=== PATIENT | male | born 1960 | race Caucasian/White ===

== ENCOUNTER 2019-10-18 11:13 | Day surgery (SDC) | payer BC ==
[~2019-10-18] VITALS: Ht 193 cm; Wt 109.1 kg
[2019-10-18 12:43] VITALS: BP 124/82; Ht 193 cm; Wt 109.1 kg
[2019-10-18] MEDS ORDERED: AMOXICILLIN500 M1 (12:49)
--- NOTE | 2019-10-19 07:38 | OP ---
PATIENT NAME: BREANA WARD MEDICAL RECORD: [id number] :56 LOCATION:[facility] ADMISSION DATE: SURGEON: ZANE BHARDWAJ DO DATE OF OPERATION: 10/18/2019 PROCEDURE: Colonoscopy with polypectomy. INDICATIONS FOR PROCEDURE: Screening colonoscopy and family history positive for colon cancer in the patient's father. SCOPE: Olympus video pediatric colonoscope. MEDICATIONS: Propofol 620 mg IV per anesthesia. WITHDRAWAL TIME: 7 minutes. ESTIMATED BLOOD LOSS: Minimal. COMPLICATIONS: None. FINDINGS: Informed consent was given. The patient was made comfortable with the above medication. After reaching an adequate level of sedation by slow IV push, the patient was placed on his left side. A digital rectal examination was performed and was normal. The endoscope was then advanced under direct visualization through the rectum to the cecum and terminal ileum. The endoscope was slowly withdrawn. Mucosa was carefully examined. The prep quality was good. There were 2 polyps visualized on today's examination. The first was located in the rectum. It was a benign appearing sessile polyp, which measured approximately 3 mm in diameter. It was removed using hot forceps. In the sigmoid colon, there was a benign appearing sessile polyp, which measured 3-4 mm in diameter. It was removed using hot snare. There was evidence of mild diverticulosis involving the entire colon. Retroflexion was performed in the rectum with visualization of grade I internal hemorrhoids without bleeding. The endoscope was withdrawn from the patient. The patient tolerated the procedure well and there were no complications. IMPRESSION: 1. Two polyps as described above, removed using a combination of a hot snare and hot forceps. 2. Mild diverticulosis of the entire colon. 3. Grade I internal hemorrhoids without bleeding. PLAN AND RECOMMENDATIONS: 1. Discharge home when recovery parameters are met. 2. Follow up biopsy specimen results. 3. High fiber diet. 4. Continue current medications. 5. Recall colonoscopy in 3 years. TRANSINT:[id number] Voice Confirmation ID: [id number] DOCUMENT ID: [id number] OPERATIVE REPORT [id number] BREANA WARD ZANE BHARDWAJ DO at 0738 CC: [id number] DICTATION DATE: 10/18/19 1410 [employer] SYSTEM[employer] ADMINISTRATOR: 10/18/198 [facility] 10/18/19 [facility] [address] [place] [address]
== END 2019-10-18 15:15 | disposition home or self-care (01) ==
LOC: D.OPS 11:13
PROVIDERS: ATTEND Internal Medicine Gastroenterology
DX: Z12.11 Encounter for screening for malignant neoplasm of colon (principal); Z80.0 Family history of malignant neoplasm of digestive organs; K63.5 Polyp of colon